=== PATIENT | female | born 1980 | race Caucasian/White ===

== ENCOUNTER 2018-04-15 14:43 | Inpatient (IN) | payer OTHER ==
[~2018-04-15] VITALS: Ht 167.6 cm; Wt 90.4 kg
[~2018-04-15 14:43] MED LIST: GAVISCON 80-141 EACH PO; IBU800 M1 PO; LAMOTRIGINE100 M2 MM; METHOCARBAMOL750 M1 PO; NKHM; PROTONIX40 MG PO; SEPTDS PO; TRAZODONE100 MG PO; TRINTELLIX10 MG PO; XANAX XR2 MG PO; ZOFRAN 4 MG ED2 TAB PO
[2018-04-15 16:00] VITALS: BP 109/65
[2018-04-15 16:38] LABS: BILIRUBIN NEGATIVE (NEGATIVE); BLOOD NEGATIVE (NEGATIVE); CLARITY CLEAR (CLEAR); COLOR YELLOW (YELLOW); GLUCOSE NEGATIVE (NEGATIVE); KETONE NEGATIVE (NEGATIVE); LEUKO ESTERASE 1+ (NEGATIVE); NITRITE NEGATIVE (NEGATIVE); PH 5.5 (5.0-9.0); SPECIFIC GRAVITY <= 1.005 (1.005-1.030); UROBILINOGEN 0.2 E.U./dl (0.2-1.0)
[2018-04-15 17:02] LABS: BASO % 1.5 % (0.0-1.0); EOS % 0.7 % (1.0-4.0); HEMATOCRIT 29.6 % (37.0-47.0); HEMOGLOBIN 8.4 g/dl (12.0-16.0); LYMPH # 0.8 10*3/uL (1.3-4.4); LYMPH % 29.8 % (27.0-41.0); MEAN CELL VOLUME 63.9 fl (81.0-99.0); MEAN CORPUSCULAR HGB 18.1 pg (27.0-31.0); MEAN CORPUSCULAR HGB CONC 28.4 g/dl (33.0-37.0); MEAN PLATELET VOLUME 8.3 fl (9.6-12.3); MONO # 0.1 10*3/uL (0.1-1.0); MONO % 4.7 % (3.0-9.0); NEUT # 1.7 10*3/uL (2.3-7.9); NEUT % 62.9 % (47.0-73.0); PLATELET COUNT AUTOMATED 180 10*3/uL (130-400); RED BLOOD COUNT 4.63 10*6/uL (4.10-5.10); RED CELL DISTRI WIDTH 22.7 % (0-14.5); WHITE BLOOD COUNT 2.8 10*3/uL (4.8-10.8)
[2018-04-15 17:09] LABS: INTERNATIONAL NORM RATIO 0.9 (2.0-3.5)
[2018-04-15 17:17] LABS: ALBUMIN 3.5 gm/dl (3.1-4.5); ALKALINE PHOSPHATASE 80 U/L (45-117); BUN 3 mg/dl (7-24); CHLORIDE 102 mmol/L (98-107); CREATININE 0.58 mg/dL (0.55-1.02); LIPASE 150 U/L (73-393); SGOT/AST 77 IU/L (3-35); SGPT/ALT 27 U/L (12-78); SODIUM 137 mmol/L (136-145); TOTAL PROTEIN 6.9 gm/dL (6.4-8.2)
[2018-04-15 17:20] LABS: BETA-HCG, QUANT < 1.0 mIU/mL (1-3)
[2018-04-15 17:35] LABS: URINE AMPHETAMINES < 1000 (1000ng/ml); URINE BARBITURATES < 200 (200ng/ml); URINE BENZODIAZEPINES > 200 (200ng/ml); URINE CANNABINOIDS (THC) < 50 (50ng/ml); URINE COCAINE < 300 (300ng/ml); URINE METHADONE < 300 (300ng/ml); URINE OPIATES < 300 (300ng/ml)
[2018-04-15] MEDS ORDERED: XANAX1 MG PO (17:36)
[2018-04-15] MEDS ORDERED: HYDROXYZINE PAM25 M1 PO (17:38)
[2018-04-15 17:42] LABS: URINE PHENCYCLIDINE < 25 (25ng/ml)
[2018-04-15 20:00] VITALS: BP 117/72
[2018-04-16] VITALS: BP 110/53
[2018-04-16 04:00] VITALS: BP 114/69
[2018-04-16 08:00] VITALS: BP 114/73
[2018-04-16 12:00] VITALS: BP 112/66
[2018-04-16 16:00] VITALS: BP 114/54
[2018-04-16 20:00] VITALS: BP 116/69
[2018-04-17 00:37] VITALS: BP 110/61
[2018-04-17 08:00] VITALS: BP 99/63
[2018-04-17] MEDS ORDERED: BRIN20TA PO (10:59)
== END 2018-04-17 12:30 | disposition home or self-care (01) | DRG 897 ==
LOC: 4E 14:43
PROVIDERS: Internal Medicine
DX: F10.230 Alcohol dependence with withdrawal, uncomplicated (principal); E44.1 Mild protein-calorie malnutrition; F33.9 Major depressive disorder, recurrent, unspecified; R45.1 Restlessness and agitation; D72.810 Lymphocytopenia; D50.9 Iron deficiency anemia, unspecified; F43.10 Post-traumatic stress disorder, unspecified; F41.1 Generalized anxiety disorder; Z90.49 Acquired absence of other specified parts of digestive tract; Z98.84 Bariatric surgery status; Z72.0 Tobacco use; Z71.6 Tobacco abuse counseling; Z84.89 Family history of other specified conditions; Z79.899 Other long term (current) drug therapy; Z68.32 Body mass index [BMI] 32.0-32.9, adult